=== PATIENT | male | born 1995 | race Caucasian/White ===

== ENCOUNTER 2016-07-08 20:55 | Emergency (ER) | payer OTHER ==
[~2016-07-08] VITALS: Ht 177.8 cm; Wt 66.5 kg
[2016-07-08 21:13] VITALS: TEMP 36.9; Ht 177.8 cm; Wt 66.5 kg
--- NOTE | 2016-07-08 22:00 | EMERGENCY ROOM VISIT NOTE ---
History Report prepared by Ruthie: Thanh Alston Under the Supervision of: Dr. Juan Ivy D.O. First contact with patient: 21:46 Chief Complaint: EYE ASSESSMENT Stated Complaint: BLEEDING EYE,SEMI PERSISTENT COLD AND SORE THORAT History of Present Illness The patient is a 21 year old male who presents to the Emergency Room with complaints of an episode of an eye assessment. He notes he had cold symptoms last week with cough, congestions, and body aches. He noticed swelling in his eye 4 days ago and a sore throat. He went to [facility] and was given penicillin. His symptoms persisted and he went to Urgent Care today and was given prednisone as they thought it was strep throat. He took the prednisone today and notes his throat feels better. He came to the ER tonight with persistent eye issues. Source of History: patient Onset: about 4 days ago Position: eye (right) Quality: other (eye assessment) Timing: other (episode) Associated Symptoms: + cough, + sorethroat Review of Systems See HPI for pertinent positives & negatives. A total of 10 systems reviewed and were otherwise negative. Past Medical & Surgical Medical Problems: (1) No Known Active Medical Problems Family History No pertinent family history stated. Social History Smoking Status: Never Smoker Occupation Status: [employer] student Allergies Coded Allergies: No Known Allergies (Unverified , 07/08/16) Physical Exam Vital Signs Date Time Temp Pulse Resp B/P Pulse Ox O2 Delivery O2 Flow Rate FiO2 07/08/16 21:13 36.9 123 16 165/98 98 Room Air Right Eye Acuity: 20/15 Left Eye Acuity: 20/15 Physical Exam CONSTITUTIONAL/VITAL SIGNS: Reviewed / noted above. GENERAL: Non-toxic in appearance. INTEGUMENTARY: Warm, dry, and [place]. HEAD: Normocephalic. EYES: Left upper medial quadrant of the right eye reveals subconjunctival hematoma. ENT/OROPHARYNX: clear and moist. LYMPHADENOPATHY/NECK: Is supple without lymphadenopathy or meningismus. RESPIRATORY: Lungs clear and equal. CARDIOVASCULAR: Regular rate and rhythm. GI/ABDOMEN: Soft and nontender. No organomegaly or pulsatile mass. No rebound or guarding. Normal bowel sounds. EXTREMITIES: Warm and well perfused. BACK: No CVA tenderness. NEUROLOGICAL: Intact without focal deficits. PSYCHIATRIC: normal affect. MUSCULOSKELETAL: Normally developed with good muscle tone. Medical Decision & Procedures ED Course 2147: Previous medical records were reviewed. The patient was evaluated in room C2B. A complete history and physical examination was performed. 2204: On reevaluation, the patient is doing well. I discussed the results and findings with the patient. He verbalized agreement of the treatment plan. The patient was discharged home. Medical Decision Differential includes Candi, trauma, conjunctivitis, globe injury. The patient presents with spontaneous hemorrhage in the left nasal upper quadrant of his sclera. Exam shows a subacute conjunctival hemorrhage. His exam is otherwise unremarkable. The patient's felt to be stable for discharge. He has had cold symptoms recently. He was also recently placed on prednisone and is on antibiotics. Impression Primary Impression: CANDI (subconjunctival hemorrhage) Scribe Attestation The scribe's documentation has been prepared under my direction and personally reviewed by me in its entirety. I confirm that the note above accurately reflects all work, treatment, procedures, and medical decision making performed by me. Departure Information Patient Instructions [facility], Subconjunctival Hemorrhage Additional Instructions Return for any concerns. Anticipate improvement of the symptoms and about 1-2 weeks.
[2016-07-08] MEDS ORDERED: PENI-82 PO (22:11)
[2016-07-08] MEDS ORDERED: PRED20TA2 PO (22:12)
[2016-07-08] MEDS ORDERED: IBUP-1459 PO (22:13)
[2016-07-08] MEDS ORDERED: ACET-1256 PO (22:15)
[2016-07-08 23:06] VITALS: BP 146/90; PULSE 114; O2SAT 97
== END 2016-07-08 23:07 | disposition home or self-care (01) ==
LOC: C.EDB 20:57 → C.EDC 23:07
DX: H11.32 Conjunctival hemorrhage, left eye (principal)